=== PATIENT | female | born 1960 | race Caucasian/White ===

== ENCOUNTER 2020-06-13 10:48 | Outpatient (CLI) | payer MEDICARE, MEDICAID, SELFPAY ==
--- NOTE | 2020-06-13 10:55 | MM_ITS ---
WS: [id number] BILATERAL DIGITAL SCREENING MAMMOGRAPHY WITH CAD CLINICAL INFORMATION: SCREENING HISTORY: Screening mammogram. No current complaints. COMPARISON: TECHNIQUE: Bilateral CC and MLO views. FINDINGS: Scattered fibroglandular densities bilaterally. No suspicious focal mass, asymmetry, calcifications, or architectural distortion. No evidence of malignancy. MM/[id number] IMPRESSION: BI-RADS: 1-Negative FOLLOW UP: 1 Year Follow-up Recommend return to annual screening mammography.
== END 2020-06-13 10:49 | disposition home or self-care (01) ==
LOC: RADSHAW 10:53
PROVIDERS: PCP Nurse Practitioner Family; Visit Provider Nurse Practitioner Family
DX: Z12.31 Encounter for screening mammogram for malignant neoplasm of breast (principal)
CPT/HCPCS: 77067

== ENCOUNTER 2021-01-08 09:49 | Outpatient (CLI) | payer MEDICARE, MEDICAID, SELFPAY ==
--- NOTE | 2021-01-08 10:04 | CT_ITS ---
WS: [id number] LDCT LUNG CANCER SCREENING TECHNIQUE: Noncontrast CT of the chest with coronal and sagittal reformatted images. CLINICAL INFORMATION: HX OF TOBACCO USE COMPARISON: CT 6 13,018 DLP: 52.6 mGy.cm DIvol: 1.[address] scans at [facility] use at least one of these dose optimization techniques: automat ed exposure control; mA and/or kV adjustment per patient size (includes targeted exams where dose is matched to clinical indication); or iterative reconstruction. FINDINGS: Both lungs are well aerated. Subsegmental atelectasis in the lung bases foraminal lobe. No suspicious pulmonary parenchymal opacities. Images limited due to body habitus. No mediastinal or hilar lymphad enopathy. Small esophageal hiatal hernia. CT/CT lung screening [id number] IMPRESSION: LUNG-RADS: 2-Benign Appearance or Behavior FOLLOW UP: 12 Month: Continue annual screening with LDCT
== END 2021-01-08 09:50 | disposition home or self-care (01) ==
LOC: RAD 09:55
PROVIDERS: PCP Nurse Practitioner Family; Visit Provider Family Medicine
DX: Z12.2 Encounter for screening for malignant neoplasm of respiratory organs (principal); Z87.891 Personal history of nicotine dependence
CPT/HCPCS: 71271

== ENCOUNTER 2021-01-24 08:54 | Outpatient (CLI) | payer MEDICARE, MEDICAID, SELFPAY ==
--- NOTE | 2021-01-24 09:16 | XR_ITS ---
WS: [id number] KUB, AP view, 01/23/2021 Clinical Data: FLANK PAIN Comparison: KUB, 02/02/2019. Findings: No abnormal intraabdominal masses or calcifications are seen. There is no dilatated small bowel or ev idence of obstruction. There is minimal amorphous calcification in the right-sided true pelvis which could represent a degen erating leiomyoma. XR/XR KUB [id number] Impression: Negative KUB.
== END 2021-01-24 08:55 | disposition home or self-care (01) ==
LOC: RAD 09:04
PROVIDERS: PCP Nurse Practitioner Family; Visit Provider Nurse Practitioner Family
DX: R10.9 Unspecified abdominal pain (principal)
CPT/HCPCS: 74018

== ENCOUNTER 2021-04-27 12:30 | Outpatient (CLI) | payer MEDICARE, MEDICAID, SELFPAY ==
--- NOTE | 2021-04-27 12:39 | XR_ITS ---
WS: [id number] Sacroiliac joints, 3 views, 04/27/2021 Clinical Data: BACK PAIN Comparison: None. Findings: The SI joints are normal in width. No erosion, sclerosis or destruction is seen. There are no fractur es or dislocations. The adjacent visualized pelvis and hips are unremarkable. XR/XR sacroiliac jts m 3V [id number] Impression: Negative SI joints.
== END 2021-04-27 12:31 | disposition home or self-care (01) ==
LOC: RAD 12:36
PROVIDERS: PCP Nurse Practitioner Family; Visit Provider Nurse Practitioner Family
DX: M54.5 Low back pain (principal)
CPT/HCPCS: 72202

== ENCOUNTER 2021-05-17 10:41 | Outpatient (CLI) | payer MEDICARE, MEDICAID, SELFPAY ==
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
== END 2021-05-17 10:42 | disposition home or self-care (01) ==
PROVIDERS: PCP Nurse Practitioner Family; Visit Provider Nurse Practitioner Family
DX: M54.40 Lumbago with sciatica, unspecified side (principal); M51.37 Other intervertebral disc degeneration, lumbosacral region; M47.816 Spondylosis without myelopathy or radiculopathy, lumbar region
CPT/HCPCS: 72100

== ENCOUNTER 2021-06-12 14:19 | Outpatient (CLI) | payer MEDICARE, MEDICAID, SELFPAY ==
--- NOTE | 2021-06-12 14:26 | CT_ITS ---
WS: [id number] CT LUMBAR SPINE, noncontrast. HISTORY: VERTEBROGENIC LOW BACK PAIN TECHNIQUE: Contiguous 2.5 mm axial imaging are performed. Sagittal and coronal reformats are submitte d and reviewed. All CT scans at [facility] use at least one of these dose optimization techni ques: automated exposure control; mA and/or kV adjustment per patient size (includes targeted exams w here dose is matched to clinical indication); or iterative reconstruction. IV contrast: None DLP: 1852.94 mGycm COMPARISON: 05/17/2021 radiograph. Posterior alignment is normal. Disc spaces and vertebral body heights are well-maintained. No fractur es. Quality the study is compromised by body habitus. L1-2: Normal. L2-3: Normal. L3-4: RIGHT foraminal disc protrusion does not appear to be contacting the nerve roots. L4-5: Mild osteophytic ridging. No stenosis. Mild facet arthritis. L5-S1: Mild facet arthritis. Small osteophytes causing mild bilateral foraminal narrowing. Visualized retroperitoneum is normal. CT/CT lumbar spine wo con* [id number] IMPRESSION: 1. No high-grade central stenosis or fracture. 2. Small RIGHT foraminal disc protrusion at L3-4 without contact on the nerve roots. 3. Mild bilateral foraminal narrowing at L5-S1 predominantly due to osteophyte s.
== END 2021-06-12 14:20 | disposition home or self-care (01) ==
PROVIDERS: PCP Nurse Practitioner Family; Visit Provider Nurse Practitioner
DX: M51.26 Other intervertebral disc displacement, lumbar region (principal); M25.78 Osteophyte, vertebrae
CPT/HCPCS: 72131

== ENCOUNTER 2021-06-13 15:15 | Outpatient (CLI) | payer MEDICARE, MEDICAID, SELFPAY ==
--- NOTE | 2021-06-13 15:22 | MM_ITS ---
WS: [id number] BILATERAL DIGITAL SCREENING MAMMOGRAPHY WITH CAD CLINICAL INFORMATION: SCREENING HISTORY: Screening mammogram. No current complaints. COMPARISON: June 13, 2020 TECHNIQUE: Bilateral CC and MLO views. FINDINGS: Scattered fibroglandular densities bilaterally. No suspicious focal mass, asymmetry, calcifications, or architectural distortion. No evidence of malignancy. MM/[place] [id number] IMPRESSION: BI-RADS: 1-Negative FOLLOW UP: 1 Year Follow-up Recommend return to annual screening mammography.
== END 2021-06-13 15:16 | disposition home or self-care (01) ==
LOC: RADSHAW 15:20
PROVIDERS: PCP Nurse Practitioner Family; Visit Provider Nurse Practitioner Family
DX: Z12.31 Encounter for screening mammogram for malignant neoplasm of breast (principal)
CPT/HCPCS: 77067

== ENCOUNTER 2021-07-30 09:33 | Emergency (ER) | payer SELFPAY ==
[2021-07-30 10:21] VITALS: BP 181/91; PULSE 97; RESP 15; TEMP 36.7; O2SAT 98; BMI 53.0
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
[2021-07-30 11:03] VITALS: BP 126/67; PULSE 70; RESP 16; O2SAT 98
[2021-07-30 11:20] LABS: Basophils # 0.2 10^3/uL (0.0-0.1); Basophils % 1.6 %; Eosinophils # 1.3 10^3/uL (0.0-0.8); Eosinophils % 14.1 %; Hemoglobin 14.4 g/dL (11.5-15.3); Lymphocytes # 1.9 10^3/uL (0.8-4.8); Lymphocytes % 20.9 %; Mean Corpuscular HGB Conc 31.3 g/dL (30.0-36.0); Mean Corpuscular Hemoglobin 27.5 pg (28.0-34.0); Mean Corpuscular Volume 87.8 fl (81-99); Mean Platelet Volume 9.3 fL (7.4-10.4); Monocytes # 0.6 10^3/uL (0.2-0.9); Monocytes % 6.3 %; Neutrophils % 56.8 %; Nucleated Red Blood Cells % 0 %; Platelet Count 615 10^3/cmm (130-400); Red Blood Count 5.24 10^6/uL (4.1-5.3); Red Cell Distribution Width 13.5 % (12.1-15.1); White Blood Count 9.2 10^3/uL (4.0-10.0)
[2021-07-30] MEDS: iohexol 300 mg/mL 100 mL Btl IV (11:36)
[2021-07-30 11:43] LABS: Alanine Aminotransferase 17 U/L (0-33); Albumin Level 4.3 g/dL (3.5-5.2); Alkaline Phosphatase 93 IU/L (35-105); Anion Gap 16.7 (5-19); Aspartate Amino Transferase 13 U/L (0-32); Blood Urea Nitrogen 20 mg/dL (6-20); Calcium 10.4 mg/dL (8.5-10.5); Carbon Dioxide 19 mmol/L (22-29); Chloride 110 mmol/L (98-107); Globulin 2.5 g/dL (1.3-4.6); Glomerular Filtration Rate 85.9 mL/min (90-130); Glucose 94 mg/dL (65-115); Osmolality Calculated 294 mOsm/kg (285-295); Potassium 4.7 mmol/L (3.5-5.1); Sodium 141 mmol/L (136-145); Total Bilirubin 0.4 mg/dL (0.15-1.2); Total Protein 6.8 g/dL (6.6-8.7)
[2021-07-30 13:03] VITALS: BP 122/88
[2021-07-30 13:11] VITALS: BP 122/88; PULSE 88; RESP 15; O2SAT 98
== END 2021-07-30 13:11 | disposition home or self-care (01) ==
PROVIDERS: Emergency Provider Physician Assistant; PCP Nurse Practitioner Family
DX: S20.20XA Contusion of thorax, unspecified, initial encounter (principal); V89.2XXA Person injured in unspecified motor-vehicle accident, traffic, initial encounter
CPT/HCPCS: 71260; 74177; 80053; 85025; 99283; Q9967

== ENCOUNTER → 2021-10-28 11:01 | Outpatient (BNVA) | payer MEDICARE, MEDICAID, SELFPAY | PROVIDERS: PCP Nurse Practitioner Family; Visit Provider Nurse Practitioner | DX: R50.9 Fever, unspecified (principal); J10.1 Influenza due to other identified influenza virus with other respiratory manifestations | CPT/HCPCS: 87400 ==

== ENCOUNTER 2022-05-08 13:20 | Outpatient (CLI) | payer MEDICARE, MEDICAID, SELFPAY ==
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
== END 2022-05-08 13:21 | disposition home or self-care (01) ==
PROVIDERS: PCP Nurse Practitioner Family; Visit Provider Nurse Practitioner Family
DX: R07.89 Other chest pain (principal)
CPT/HCPCS: 71046

== ENCOUNTER 2022-05-28 06:41 | Outpatient (CLI) | payer MEDICARE, MEDICAID, SELFPAY ==
--- NOTE | 2022-05-28 06:46 | CT_ITS ---
WS: [id number] LDCT LUNG CANCER SCREENING HISTORY: STOPPED SMOKING TECHNIQUE: Axial imaging performed from the apices to 1 cm below the costophrenic angles. Coronal and sagittal reformats are submitted with axial MIP series. All CT scans at [facility] use at least one of these dose optimization techniques: automated exposure control; mA and/or kV adjustment per patient size (includes targeted exams where dose is matched to clinical indication); or iterativ e reconstruction. DLP: 84.39 mGy.cm DIvol: Mean CTDIvol: 1.60 (mGy),Mean CTDIvol: 1.60 (mGy) COMPARISON: 07/30/2021 Diagnostic quality: Limited by body habitus. Lung Nodules: No pulmonary nodule or mass or endobronchial lesion. Lungs: Subsegmental atelectasis LEFT lung base. Heart: Normal size heart. No pericardial effusion. Other findings: None. CT/CT lung screening [id number] IMPRESSION: LUNG-RADS: 1-Negative FOLLOW UP: 12 Month: Continue annual screening with LDCT OTHER FINDINGS (S MODIFIER): None.
== END 2022-05-28 06:42 | disposition home or self-care (01) ==
LOC: RAD 06:42
PROVIDERS: PCP Nurse Practitioner Family; Visit Provider Nurse Practitioner Family
DX: Z12.2 Encounter for screening for malignant neoplasm of respiratory organs (principal); Z87.891 Personal history of nicotine dependence
CPT/HCPCS: 71271

== ENCOUNTER → 2022-08-08 09:51 | Outpatient (BNVA) | payer MEDICARE, MEDICAID, SELFPAY | PROVIDERS: PCP Nurse Practitioner Family; Visit Provider Podiatrist Foot & Ankle Surgery | DX: W50.0XXA Accidental hit or strike by another person, initial encounter (principal); L60.3 Nail dystrophy; S91.201A Unspecified open wound of right great toe with damage to nail, initial encounter | CPT/HCPCS: 99203 ==

== ENCOUNTER 2022-10-12 11:35 | Outpatient (CLI) | payer MEDICARE, MEDICAID, SELFPAY ==
--- NOTE | 2022-10-12 11:58 | XRR_ITS ---
PROCEDURE INFORMATION: Exam: XR Right Knee Exam date and time: 10/12/2022 12:02 PM Age: 61 years old Clinical indication: Pain; Knee; Right; Additional info: RT knee pain TECHNIQUE: Imaging protocol: Radiologic exam of the Right knee. Views: 3 views. COMPARISON: No relevant prior studies available. FINDINGS: Bones/joints: No fracture or dislocation. There is moderate degenerative changes of the right knee, manifested by joint space narrowing, subchondral sclerosis and periarticular osteophytes, involving mainly the medial compartment. Small joint effusion noted. Soft tissues: Normal. XR/XR knee RT 4V [id number] IMPRESSION: 1. No fracture or dislocation. 2. Moderate osteoarthrosis.
== END 2022-10-12 11:36 | disposition home or self-care (01) ==
PROVIDERS: PCP Nurse Practitioner Family; Visit Provider Nurse Practitioner Family
DX: R26.9 Unspecified abnormalities of gait and mobility (principal); M17.11 Unilateral primary osteoarthritis, right knee
CPT/HCPCS: 73564

== ENCOUNTER → 2022-10-17 13:34 | Outpatient (BNVA) | payer MEDICARE, MEDICAID, SELFPAY | PROVIDERS: PCP Nurse Practitioner Family; Referring Provider Nurse Practitioner Family; Visit Provider Nurse Practitioner Family | DX: M17.11 Unilateral primary osteoarthritis, right knee (principal) | CPT/HCPCS: 20610; 99214; J1100; J2795; J3301 ==

== ENCOUNTER 2022-12-15 21:18 | Emergency (ER) | payer MEDICARE, MEDICAID, SELFPAY ==
[2022-12-15 21:21] VITALS: BP 114/71; PULSE 85; RESP 18; TEMP 36.3; O2SAT 97; BMI 45.6
--- NOTE | 2022-12-15 21:27 | ECG_ITS ---
[facility] Test Date: 2022-12-15 Pat Name: Shelbi Jerez Department: Room: Gender: Female Parking Patroller: : 1960 Requested By: Annemarie Randall Order Number: [id number] Brenda MD: Edison Cassidy M.D. Measurements Intervals [place] Rate: 81 P: 147 OH: 177 QRS: 49 QRSD: 90 T: 21 QT: 328 QTc: 383 Interpretive Statements SINUS RHYTHM POSSIBLE LEFT ATRIAL ENLARGEMENT [-0.1mV P-WAVE IN V1/V2] No previous ECG available for comparison Electronically Signed On 12-16-2022 14:27:45 CDT by Edison Cassidy M.D. [email or web address]
== END 2022-12-15 21:49 | disposition left against medical advice (07) ==
LOC: ER 21:26
PROVIDERS: Emergency Provider Family Medicine; PCP Nurse Practitioner Family
DX: Z53.21 Procedure and treatment not carried out due to patient leaving prior to being seen by health care provider (principal)
CPT/HCPCS: 93005

== ENCOUNTER → 2023-02-14 07:56 | Outpatient (BNVA) | payer MEDICARE, MEDICAID, SELFPAY | PROVIDERS: PCP Nurse Practitioner Family; Visit Provider Nurse Practitioner Family | DX: M17.11 Unilateral primary osteoarthritis, right knee (principal) | CPT/HCPCS: 20610; 99213; J1100; J2795; J3301 ==

== ENCOUNTER → 2023-05-31 11:04 | Outpatient (BNVA) | payer MEDICARE, MEDICAID, SELFPAY | PROVIDERS: PCP Nurse Practitioner Family; Visit Provider Emergency Medicine | DX: J02.9 Acute pharyngitis, unspecified (principal) | CPT/HCPCS: 87071; 87880 ==

== ENCOUNTER → 2023-06-05 08:46 | Outpatient (BNVA) | payer MEDICARE, MEDICAID, SELFPAY | PROVIDERS: PCP Nurse Practitioner Family; Visit Provider Podiatrist Foot & Ankle Surgery | DX: L60.3 Nail dystrophy (principal) | CPT/HCPCS: 99213 ==

== ENCOUNTER → 2023-07-23 07:16 | Outpatient (BNVA) | payer MEDICARE, MEDICAID, SELFPAY | PROVIDERS: PCP Nurse Practitioner Family; Visit Provider Podiatrist Foot & Ankle Surgery | DX: L60.3 Nail dystrophy (principal); E11.42 Type 2 diabetes mellitus with diabetic polyneuropathy; Z79.4 Long term (current) use of insulin | CPT/HCPCS: 99213 ==

== ENCOUNTER → 2024-04-14 08:12 | Outpatient (BNVA) | payer MEDICARE, MEDICAID, SELFPAY | PROVIDERS: PCP Nurse Practitioner Family; Visit Provider Nurse Practitioner Family | DX: R09.81 Nasal congestion (principal) | CPT/HCPCS: 87400; 87426 ==

== ENCOUNTER → 2024-04-19 10:15 | Outpatient (BNVA) | payer MEDICARE, MEDICAID, SELFPAY | PROVIDERS: PCP Nurse Practitioner Family; Referring Provider Nurse Practitioner Family; Visit Provider Internal Medicine | DX: R53.83 Other fatigue (principal); E21.0 Primary hyperparathyroidism; E55.9 Vitamin D deficiency, unspecified; G47.33 Obstructive sleep apnea (adult) (pediatric); Z87.442 Personal history of urinary calculi | CPT/HCPCS: 36415; 80053; 82306; 82310; 83970; 84439; 84443; 99204 ==

== ENCOUNTER 2024-06-17 07:48 | Outpatient (CLI) | payer MEDICARE, MEDICAID, SELFPAY ==
--- NOTE | 2024-06-17 08:00 | NM_ITS ---
WS: [id number] EXAMINATION: NM parathyroid [id number] ORDER DATE: 06/17/2024 8:23 AM COMPARISON: None HISTORY: hyperparathyroidism TECHNIQUE: Parathyroid scintigraphy with 18.0 mCi of technetium 99m sestamibi administered. AP and ob lique views obtained with and without chin and suprasternal notch markers. Initial and 2 hour delaye d imaging acquired. FINDINGS: Normal salivary gland uptake. Homogeneous thyroid uptake. Normal thyroid washout on the delayed image s. No retained activity to indicate parathyroid adenoma. NM/NM parathyroid [id number] IMPRESSION: No evidence of parathyroid adenoma.
== END 2024-06-17 07:49 | disposition home or self-care (01) ==
PROVIDERS: PCP Nurse Practitioner Family; Visit Provider Internal Medicine
DX: E21.0 Primary hyperparathyroidism (principal)
CPT/HCPCS: 78070; A9500

== ENCOUNTER → 2024-07-20 08:15 | Outpatient (BNVA) | payer MEDICARE, MEDICAID, SELFPAY | PROVIDERS: PCP Nurse Practitioner Family; Visit Provider Podiatrist Foot & Ankle Surgery | DX: E11.42 Type 2 diabetes mellitus with diabetic polyneuropathy; L60.3 Nail dystrophy; L84 Corns and callosities; Q66.71 Congenital pes cavus, right foot; Q66.72 Congenital pes cavus, left foot; Z79.4 Long term (current) use of insulin | CPT/HCPCS: 99213 ==

== ENCOUNTER 2024-11-02 10:33 | Outpatient (CLI) | payer MEDICARE, MEDICAID, SELFPAY ==
--- NOTE | 2024-11-02 10:39 | MR_ITS ---
WS: [id number] MRI LUMBAR SPINE NONCONTRAST HISTORY: INTERVERTEBRAL DISC DISORDERS W/RADICULOPATH, LUMBAR REGION COMPARISON: None available. TECHNIQUE: Sagittal and axial multisequence imaging is submitted. Reversal the normal cervical lordosis centered at C6-7. Mild disc space narrowing and desiccation at C6-7 with a central disc protrusion. Minimal contact on the ventral cervical cord. Normal lumbar alignment with no compression fractures or marrow edema. Mild disc desiccation throughout the lumbar spine without loss of height. No acute fracture or marrow edema. Conus terminates normally at L1. L1-L2: Normal. L2-L3: Mild annular disc bulging with shallow bilateral foraminal disc protrusions. Ligamentum flavum and facet arthritis, mild. Disc encroachment upon the ventral thecal sac and subarticular recesses. Mild central, subarticular recess and foraminal stenosis. Slightly greater encroachment upon the traversing L3 nerve roots. L3-L4: Diffuse annular disc bulging with marked ligamentum flavum and facet arthritis. Increased soft tissue in the RIGHT foramen completely effacing fat. Fluid in the facet joints bilaterally. Severe central, subarticular recess and RIGHT foraminal stenosis. Mild LEFT foraminal stenosis. Moderate size RIGHT foraminal disc protrusion effacing fat and contacting the RIGHT nerve roots. There is a small facet joint cyst measuring 7 mm on the RIGHT. L4-L5: Mild annular disc bulge with a central disc protrusion and annular fissure. Disc contacts the ventral thecal sac and subarticular recesses and traversing L5 nerve roots. Additional very small bilateral foraminal disc protrusions. Mild central and bilateral subarticular recess stenosis. L5-S1: Mild annular disc bulging and mild osteophytic ridging. Bilateral mild facet arthritis. No significant stenosis. Paravertebral soft tissues are normal. MR/MR lumbar spine wo con* [id number] IMPRESSION: 1. L3-4: RIGHT foraminal disc protrusion completely effacing fat and contactin g the L3 and L4 nerve roots. 2. L3-4: Severe central, subarticular recess and RIGHT foraminal stenosis due to disc and osteophyte and facet arthropathy. Small RIGHT facet joint cyst. 3. L4-5: Central disc protrusion with annular fissure. Additional small bilate ral foraminal disc protrusions. Mild central and bilateral subarticular recess stenosis. Mild disc contact on the traversing L5 nerve roots. 4. L2-3: Mild central, subarticular recess and foraminal stenosis. Mild disc e ncroachment upon the ventral thecal sac and subarticular recesses. Greater encr oachment upon the traversing L3 nerve roots.
== END 2024-11-02 10:34 | disposition home or self-care (01) ==
PROVIDERS: PCP Nurse Practitioner Family; Visit Provider Anesthesiology Pain Medicine
DX: M51.16 Intervertebral disc disorders with radiculopathy, lumbar region (principal); M51.26 Other intervertebral disc displacement, lumbar region; R93.7 Abnormal findings on diagnostic imaging of other parts of musculoskeletal system; M48.061 Spinal stenosis, lumbar region without neurogenic claudication; M25.78 Osteophyte, vertebrae; M47.896 Other spondylosis, lumbar region; M71.38 Other bursal cyst, other site; M51.369 Other intervertebral disc degeneration, lumbar region without mention of lumbar back pain or lower extremity pain; M24.28 Disorder of ligament, vertebrae; M51.379 Other intervertebral disc degeneration, lumbosacral region without mention of lumbar back pain or lower extremity pain; M47.897 Other spondylosis, lumbosacral region
CPT/HCPCS: 72148

== ENCOUNTER → 2024-11-30 14:22 | Outpatient (BNVA) | payer MEDICARE, MEDICAID, SELFPAY | PROVIDERS: PCP Nurse Practitioner Family; Visit Provider Podiatrist Foot & Ankle Surgery | DX: E11.42 Type 2 diabetes mellitus with diabetic polyneuropathy (principal); L84 Corns and callosities; Q66.71 Congenital pes cavus, right foot; Q66.72 Congenital pes cavus, left foot | CPT/HCPCS: 99213 ==

== ENCOUNTER 2025-01-20 10:25 | Outpatient (CLI) | payer OTHER, MEDICAID, SELFPAY ==
--- NOTE | 2025-01-20 10:30 | XR_ITS ---
WS: [id number] KUB, AP view, 01/20/2025 Clinical Data: FLANK PAIN, LEFT, HEMATURIA Comparison: KUB, 01/24/2021 Findings: No abnormal intraabdominal masses are seen. There is no dilatated small bowel or evidence of obstruction. There are calcifications overlying both kidneys but they could be within the colon. There is a large amount of fecal material in the transverse colon. XR/XR KUB [id number] Impression: Calcifications overlying both kidneys but they may be in the colon.
== END 2025-01-20 10:26 | disposition home or self-care (01) ==
LOC: RAD 10:29
PROVIDERS: PCP Nurse Practitioner Family; Visit Provider Nurse Practitioner Family
DX: R10.9 Unspecified abdominal pain (principal); R31.9 Hematuria, unspecified; R93.89 Abnormal findings on diagnostic imaging of other specified body structures
CPT/HCPCS: 74018

== ENCOUNTER 2025-02-09 11:31 | Outpatient (CLI) | payer OTHER, MEDICAID, SELFPAY ==
--- NOTE | 2025-02-09 | MM_ITS ---
WS: [id number] BILATERAL 3D TOMOSYNTHESIS DIGITAL SCREENING MAMMOGRAPHY WITH CAD CLINICAL INFORMATION: ANNUAL SCREENING HISTORY: Screening mammogram. No current complaints. COMPARISON: None. TECHNIQUE: Bilateral CC and MLO views. FINDINGS: Scattered fibroglandular densities bilaterally. No suspicious focal mass, asymmetry, calcifications, or architectural distortion. No evidence of malignancy. MM/MM scr BI tomosynthesis [id number] IMPRESSION: DENSITY: There are scattered areas of fibroglandular density. BI-RADS: 1 - Negative. FOLLOW UP: 1 Year Follow-up Recommend return to annual screening mammography.
== END 2025-02-09 11:32 | disposition home or self-care (01) ==
PROVIDERS: PCP Nurse Practitioner Family; Visit Provider Nurse Practitioner Family
DX: Z12.31 Encounter for screening mammogram for malignant neoplasm of breast (principal)
CPT/HCPCS: 77063; 77067

== ENCOUNTER → 2025-06-08 13:45 | Outpatient (BNVA) | payer OTHER, MEDICAID, SELFPAY | PROVIDERS: PCP Nurse Practitioner Family | DX: R39.9 Unspecified symptoms and signs involving the genitourinary system (principal) | CPT/HCPCS: 81000 ==

== ENCOUNTER 2025-06-13 06:41 | Emergency (ER) | payer OTHER, MEDICAID, SELFPAY ==
--- OUTSIDE RECORDS SUMMARY | 2025-06-13 06:45 | XMS_ITS | Encounter Summary ---
Author Organization [facility] Address [address] [place] [address] Care Team Providers Care Meat Molder Name Role Phone Unavailable Primary Care Provider Unavailabl e Encounter Details Date Type Department Care Team (Latest Contact Info) Description 12/09/2000 Outpatient Historical HIS [facility] Eduard Alston MD [address] [place] [address] Type I (juvenile type) diabetes mellitus without mention of complication, not stated as uncontrolled (Primary Dx); Periapical abscess; Dental caries; Allergic rhinitis, cause unspecified Social History Tobacco Use Types Packs/Day Years Used Date Smoking Tobacco: Never Assessed Comments Unknown Sex and Gender Information Value Date Recorded Sex Assigned at Not on file 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
--- OUTSIDE RECORDS SUMMARY | 2025-06-13 06:45 | XMS_ITS | Encounter Summary ---
Author Organization [facility] Address [address] [place] [address] Care Team Providers Care Die Press Operator Name Role Phone Unavailable Primary Care Provider Unavailabl e Encounter Details Date Type Department Care Team (Latest Contact Info) Description 04/14/2000 Outpatient Historical HIS [facility] Eduard Alston MD [address] [place] [phone] Other, multiple, and unspecified sites, insect bite, nonvenomous, infected(919.5) (Primary Dx) Social History Tobacco Use Types Packs/Day Years Used Date Smoking Tobacco: Never Assessed Comments Unknown Sex and Gender Information Value Date Recorded Sex Assigned at Not on file Legal Sex Female 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
--- OUTSIDE RECORDS SUMMARY | 2025-06-13 06:45 | XMS_ITS | Encounter Summary ---
Author Organization [facility] Address [address] [place] [address] Care Team Providers Care Tafe Registrar Name Role Phone Unavailable Primary Care Provider Unavailabl e Encounter Details Date Type Department Care Team (Latest Contact Info) Description 03/04/2001 Outpatient Historical HIS [facility] Jigar Alatorre NO ADDRESS ON FILE Cellulitis and abscess of unspecified digit (Primary Dx) Social History Tobacco Use Types Packs/Day Years Used Date Smoking Tobacco: Never Assessed Comments Unknown Sex and Gender Information Value Date Recorded Sex Assigned at Not on file Legal Sex Female 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
--- OUTSIDE RECORDS SUMMARY | 2025-06-13 06:45 | XMS_ITS | Encounter Summary ---
Author Organization [facility] Address [address] [place] [address] Care Team Providers Care Siding Installer Name Role Phone Unavailable Primary Care Provider Unavailabl e Encounter Details Date Type Department Care Team (Latest Contact Info) Description 03/27/2001 Outpatient Historical HIS [facility] Eduard Alston MD [address] [place] [phone] Anxiety state, unspecified (Primary Dx); Depressive disorder, not elsewhere classified Social History Tobacco Use Types Packs/Day Years Used Date Smoking Tobacco: Never Assessed Comments Unknown Sex and Gender Information Value Date Recorded Sex Assigned at Not on file 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
--- OUTSIDE RECORDS SUMMARY | 2025-06-13 06:45 | XMS_ITS | Encounter Summary ---
Author Organization [facility] Address [address] [place] [address] Care Team Providers Care Lead Web Developer Name Role Phone Unavailable Primary Care Provider Unavailabl e Encounter Details Date Type Department Care Team (Latest Contact Info) Description 04/13/2001 Outpatient Historical HIS [facility] Eduard Alston MD [address] [place] [phone] Dermatitis due to plant (Primary Dx); Sialoadenitis Social History Tobacco Use Types Packs/Day Years Used Date Smoking Tobacco: Never Assessed Comments Unknown Sex and Gender Information Value Date Recorded Sex Assigned at Not on file 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
--- OUTSIDE RECORDS SUMMARY | 2025-06-13 06:45 | XMS_ITS | Encounter Summary ---
Author Organization [facility] Address [address] [place] [address] Care Team Providers Care Flitch Hanger Name Role Phone Unavailable Primary Care Provider Unavailabl e Encounter Details Date Type Department Care Team (Latest Contact Info) Description 10/28/2000 Outpatient Historical HIS [facility] Jigar Alatorre NO ADDRESS ON FILE Other malaise and fatigue (Primary Dx); Type I (juvenile type) diabetes mellitus without mention of complication, not stated as uncontrolled Social History Tobacco Use Types Packs/Day Years Used Date Smoking Tobacco: Never Assessed Comments Unknown Sex and Gender Information Value Date Recorded Sex Assigned at Not on file 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
--- OUTSIDE RECORDS SUMMARY | 2025-06-13 06:45 | XMS_ITS | Encounter Summary ---
Author Organization [facility] Address [address] [place] [address] Care Team Providers Care Rack Pusher Name Role Phone Unavailable Primary Care Provider Unavailabl e Encounter Details Date Type Department Care Team (Latest Contact Info) Description 03/09/2001 Outpatient Historical HIS [facility] Eduard Alston MD [address] [place] [phone] Depressive disorder, not elsewhere classified (Primary Dx) Social History Tobacco Use Types Packs/Day Years Used Date Smoking Tobacco: Never Assessed Comments Unknown Sex and Gender Information Value Date Recorded Sex Assigned at Not on file Legal Sex Female 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
--- OUTSIDE RECORDS SUMMARY | 2025-06-13 06:45 | XMS_ITS | Encounter Summary ---
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
--- OUTSIDE RECORDS SUMMARY | 2025-06-13 06:46 | XMS_ITS | Encounter Summary ---
Author Organization [facility] Address [address] [place] [address] Care Team Providers Care Director Physical Therapy Name Role Phone Unavailable Primary Care Provider Unavailabl e Encounter Details Date Type Department Care Team (Latest Contact Info) Description 07/02/2001 Outpatient Historical HIS [facility] Eduard Alston MD [address] [place] [phone] ABDOMINAL PAIN RLQ (Primary Dx) Social History Tobacco Use Types Packs/Day Years Used Date Smoking Tobacco: Never Assessed Comments Unknown Sex and Gender Information Value Date Recorded Sex Assigned at Not on file Legal Sex Female 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
--- OUTSIDE RECORDS SUMMARY | 2025-06-13 06:46 | XMS_ITS | Encounter Summary ---
Author Organization [facility] Address [address] [place] [address] Care Team Providers Care Sweetbread Trimmer Name Role Phone Unavailable Primary Care Provider Unavailabl e Encounter Details Date Type Department Care Team (Latest Contact Info) Description 05/17/1999 Outpatient Historical HIS [facility] Eduard Alston MD [address] [place] [phone] Screening examination for pulmonary tuberculosis (Primary Dx) Social History Tobacco Use Types Packs/Day Years Used Date Smoking Tobacco: Never Assessed Comments Unknown Sex and Gender Information Value Date Recorded Sex Assigned at Not on file Legal Sex 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
--- OUTSIDE RECORDS SUMMARY | 2025-06-13 06:46 | XMS_ITS | Encounter Summary ---
Author Organization [facility] Address [address] [place] [address] Care Team Providers Care Audiovisual Technician Name Role Phone Unavailable Primary Care Provider Unavailabl e Encounter Details Date Type Department Care Team (Latest Contact Info) Description 08/14/1999 Outpatient Historical HIS [facility] Jigar Alatorre NO ADDRESS ON FILE Influenza with other respiratory manifestations (Primary Dx); Type II or unspecified type diabetes mellitus without mention of complication, not stated as uncontrolled Social History Tobacco Use Types Packs/Day Years Used Date Smoking Tobacco: Never Assessed Comments Unknown Sex and Gender Information Value Date Recorded Sex Assigned at Not on file Legal Sex Female 4:07 AM ADMITTING REPRESENTATIVE Gender Identity Not on file Sexual Orientation Not on file documented as of this encounter Plan of Treatment Not on file documented as of this encounter Visit Diagnoses Diagnosis Influenza with other respiratory manifestations- Primary Type II or unspecified type diabetes mellitus without mention of complication, not stated as uncontrolled documented in this encounter
--- OUTSIDE RECORDS SUMMARY | 2025-06-13 06:46 | XMS_ITS | Clinical Summary ---
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
--- OUTSIDE RECORDS SUMMARY | 2025-06-13 06:46 | XMS_ITS | Encounter Summary ---
Author Organization [facility] Address [address] [place] [address] Care Team Providers Care Writing Manager Name Role Phone Unavailable Primary Care Provider Unavailabl e Encounter Details Date Type Department Care Team (Latest Contact Info) Description 05/15/1999 Outpatient Historical HIS [facility] Eduard Alston MD [address] [place] [phone] Type II or unspecified type diabetes mellitus without mention of complication, not stated as uncontrolled (Primary Dx); Unspecified viral infection, in conditions classified elsewhere and of unspecified site Social History Tobacco Use Types Packs/Day Years Used Date Smoking Tobacco: Never Assessed Comments Unknown Sex and Gender Information Value Date Recorded Sex Assigned at Not on file Legal Sex Female 4:07 AM MANAGER OF INTERNAL Gender Identity Not on file Sexual Orientation Not on file documented as of this encounter Plan of Treatment Not on file documented as of this encounter Visit Diagnoses Diagnosis Type II or unspecified type diabetes mellitus without mention of complication, not stated as uncontrolled- Primary Unspecified viral infection, in conditions classified elsewhere and of unspecified site documented in this encounter
--- OUTSIDE RECORDS SUMMARY | 2025-06-13 06:46 | XMS_ITS | Encounter Summary ---
Author Organization [facility] Address [address] [place] [address] Care Team Providers Care Budget Assistant Name Role Phone Unavailable Primary Care Provider Unavailabl e Encounter Details Date Type Department Care Team (Latest Contact Info) Description 06/22/2002 Outpatient Historical HIS [facility] Eduard Alston MD [address] [place] [phone] ALLERGIC RHINITIS NOS (Primary Dx); UNS ASTHMA WOSTATUS ASTHMATICUS; DIABETES UNCOMPL KADE-TYPE I ([facility]) Social History Tobacco Use Types Packs/Day Years Used Date Smoking Tobacco: Never Assessed Comments Unknown Sex and Gender Information Value Date Recorded Sex Assigned at Not on file Legal Sex Female 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
--- OUTSIDE RECORDS SUMMARY | 2025-06-13 06:46 | XMS_ITS | Encounter Summary ---
Author Organization [facility] Address [address] [place] [address] Care Team Providers Care Call Center Manager Name Role Phone Unavailable Primary Care Provider Unavailabl e Encounter Details Date Type Department Care Team (Latest Contact Info) Description 10/19/1999 Outpatient Historical HIS [facility] Eduard Alston MD [address] [place] [phone] Pain in joint, ankle and foot (Primary Dx); Unspecified closed fracture of ankle; Type I (juvenile type) diabetes mellitus without mention of complication, not stated as uncontrolled Social History Tobacco Use Types Packs/Day Years Used Date Smoking Tobacco: Never Assessed Comments Unknown Sex and Gender Information Value Date Recorded Sex Assigned at Not on file Legal 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
--- OUTSIDE RECORDS SUMMARY | 2025-06-13 06:46 | XMS_ITS | Encounter Summary ---
Author Organization [facility] Address [address] [place] [address] Care Team Providers Care Child Life Assistant Name Role Phone Unavailable Primary Care Provider Unavailabl e Encounter Details Date Type Department Care Team (Latest Contact Info) Description 07/18/1998 Outpatient Historical HIS [facility] Eduard Alston MD [address] [place] [phone] Type I (juvenile type) diabetes mellitus without mention of complication, not stated as uncontrolled (Primary Dx); Depressive disorder, not elsewhere classified; Obesity, unspecified Social History Tobacco Use Types Packs/Day Years Used Date Smoking Tobacco: Never Assessed Comments Unknown Sex and Gender Information Value Date Recorded Sex Assigned at Not on file Legal Sex Female 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
--- OUTSIDE RECORDS SUMMARY | 2025-06-13 06:46 | XMS_ITS | Data Portability ---
Author Organization [facility], Dat, [facility] Address [address] [place] [address] Care Team Providers Care Net Developer With W[employer] Name Role Phone MONICA TORO Primary Care Provider [phone] Assessment No assessment recorded. Plan of Treatment Reminders Order Date Submit Date Provider Last Modified By Organization Details Last Modified Time Details Appointments None record ed. Lab None record ed. Referral None record ed. Procedures None record ed. Surgeries None record ed. Imaging XR, wrist, 3 or more view 025 01/09/20 [email or web address] [facility], [address] [place], [address], 13:36:56 Medication Orders None record ed. Patient TargetsNo targets recorded. Patient Instructions Encounter Date Encounter Id Patient Instructions Last Modified By Organization Details Last Modified Time 01/08/2025 [id number] May use ice and NSAIDs. Splint applied. Not available 01/08/2025 16:20:30 X-rays reviewed: May have a possible compound fracture of left wrist- will let radiology determine this. Splint applied. If this comes back as this will need to refer to ortho. Not available 01/08/2025 16:19:56 Reason for Referral None Reported. Results Created Date Observation Date Name Description Value Unit Range Abnormal Flag Note LastModifiedBy Organization Detail LastModifiedTime 01/12/2001/08/2025 XR, wrist , 3 or more view No observ ation record ed. [email or web address] [address], [place], [address], 01/11/2025 16:00:48 Result Notes None recorded. Problems Name Problem SNOMED Code Status Onset Date Resolution Date Notes Provider Name and Address Organization Details Recorded Time Asthma 770734510 Active 2019 Asthma; 0 9:20AM by Brittney Ortiz, Office Visit; Promoted; acuity set as *; Not Available [facility] 3 03:13:25 Type 2 diabetes mellitus without complicati on 914758868 Active 2019 Diabetes Mellitus, Type II; 0 9:20AM by Brittney Ortiz, Office Visit; Promoted; acuity set as *; Not Available [facility] 3 03:13:26 Problem Notes None recorded. Medical Equipment None Reported. Allergies Allergen ID Allergen Name Allergen Category Reaction Reaction Severity Criticality Documentation Date Start Date Code Code System Note Provider Name and Address Organization Details Recorded Time 18138 house dust allergeni c extract environme nt,medica tion Not available Not available Not available 03/22/2023 40251 9 RxNorm Comme nt: Recor ded 03/25 9:23A M by Rojas Gates rs, Offic e Visit ; Promo ijeoma; Signi fican ce: *; ; Not Available [facility] 3 02:24:02 28446 animal dander environme nt Not available Not available Not available 03/22/2023 Comme nt: Recor ded 03/25 9:23A M by Rojas Gates rs, Offic e Visit ; Promo ijeoma; Signi fican ce: *; ; Not Available [facility] 3 02:24:02 91334 POLLEN EXTRACTS medicatio n Not available Not available Not available 03/22/2023 64835 6 RxNorm Comme nt: Recor ded 03/25 9:23A M by Rojas Gates rs, Offic e Visit ; Promo ijeoma; Signi fican ce: *; ; Not Available [facility] 3 02:24:02 Medications Name Sig Start Date Stop Date Status Note LastModified by Organization Details LastModified Time Lantus U-100 Insulin 100 unit/mL subcutane ous solution Inject by subcutan eous route. active Not Available Not Available No t Available lisinopri l 10 mg tablet 01/08 completed 0; Recorded 03/25/20 9:21AM by Brittney Ortiz, Office Visit; Not Available Not Available Not Available Topamax 50 mg tablet active 0; Recorded 03/25/20 9:21AM by Brittney Ortiz, Office Visit; Not Available Not Available Not Available hydrocodo ne 10 mg-acetam inophen 300 mg tablet Take 1 tablet every 6 hours by oral route. active Not Available Not Available No t Available Prozac active Not Available Not Availa ble Not Available buspirone active Not Available Not Aiyana ilable Not Available metformin 01/08 completed 0; Recorded 03/25/20 9:20AM by Brittney Ortiz, Office Visit; Not Available Not Available Not Available Novolog Mix 70-30 U-100 Insuln 01/08 completed 0; Recorded 03/25/20 9:22AM by Brittney Ortiz, Office Visit; Not Available Not Available Not Available Farxiga active Not Available Not Avail able Not Available Mounjaro active Not Available Not Avai lable Not Available Vitals Date Recorded Body height Body mass index (BMI) Body weight Heart rate Oxygen saturation Oxygen saturation in Arterial blood by Pulse oximetry Body temperature Systolic And Diastolic Provider Name and Address Organization Details Last Updated DateTime 172.72 cm 32.7 kg/m2 03060.3 6 g 71 /min 99 % 99 % 98.3 [degF] 122/68 mm[Hg] Tammy Anders [facility] 15:46:07 Social History Question Answer Notes LastModified by Organizat ion Details LastModified Time Tobacco Smoking Status Never Smoker Tammy Anders [facility] 01/08/2025 15:41:59 What Was The Date Of Your Most Recent Tobacco Screening? 01/08/2025 [id number] Information not available 01/08/2025 Sex: Unknown Functional Status None recorded. Mental Status None recorded. Family History Nothing Reported. Medical History No medical history recorded. Gynecological HistoryNo gynecological history recorded. Obstetrics History GPAL:G 0 P 0 0 0 0 Immunizations Vaccine Type Date Status Note Provider Nam e and Address Organization Details Recorded Time influenza, split (incl. purified surface antigen) 0 completed Not Available [facility] 01/08/2025 15:37:04 COVID-19, mRNA, LNP-S, PF, 100 mcg/0.5mL dose or 50 mcg/0.25mL dose 1 completed Not Available [facility] 01/08/2025 15:37:04 COVID-19, mRNA, LNP-S, PF, 100 mcg/0.5mL dose or 50 mcg/0.25mL dose 1 completed Not Available [facility] 01/08/2025 15:37:04 Influenza, split virus, quadrivalent, PF 1 completed Not Available [facility] 01/08/2025 15:37:04 Influenza, split virus, quadrivalent, PF 2 completed Not Available [facility] 01/08/2025 15:37:04 zoster recombinant 2 completed Not Available [facility] 01/08/2025 15:37:04 COVID-19, mRNA, LNP-S, bivalent, PF, 50 mcg/0.5 mL or 25mcg/0.25 mL dose 3 completed Not Available [facility] 01/08/2025 15:37:04 Tdap 3 completed Not Available [facility] 01/08/2025 15:37:04 Influenza, split virus, quadrivalent, PF 3 completed Not Available [facility] 01/08/2025 15:37:04 COVID-19, mRNA, LNP-S, PF, 50 mcg/0.5 mL 3 completed Not Available [facility] 01/08/2025 15:37:04 Influenza, split virus, trivalent, PF 4 completed Not Available [facility] 01/08/2025 15:37:04 Past Encounters Encounter ID Performer Location Encounter Start Date Encounter Closed Date Diagnosis/Indication Diagnosis SNOMED-CT Code Diagnosis ICD10 Code Diagnosis IMO Codes Diagnosis Note [id number] DIOR QUINTEROS APRN [facility] ([facility]) [address] [place] [phone] 01/08/2025 15:35:17 01/10/2025 13:36:56 Pain of left wrist 5105249567 87963 M25.532 476086 Health Concerns Section Related Observation LastModified by Organization Detai ls LastModified Time None Recorded Concern Status LastModified by Organization Details LastModified Time None Recorded Advance Directives Directive None Recorded Payers Insurance Date Sequence Insurance Name Policy Number Policy George Covered Member ID George Member ID Guarantor Name 01/08/2025 1 [facility] (MEDICARE REPLACEMENT/A DVANTAGE - PPO) Shelbi Jerez [id number] Shelbi Jerez 01/08/2025 2 [place] Shelbi Jerez [id number] Shelbi Jerez 01/10/2025 [place] [facility] hSelbi Jerez [id number] Shelbi Jerez Notes Date Note Type Note Provider Name and Address Organization Details Recorded Time 01/08/2025 text/html walk in ptPt fell 9 days ago and hurt left wrist. The last few days the pain has gotten worse. DIOR QUINTEROS, SEWING MACHINES SALESPERSON [address] [place], [address], [facility], Dat 01/08/2025 16:20:51 OBGyn Episode No OBEpisode recorded.
--- OUTSIDE RECORDS SUMMARY | 2025-06-13 06:46 | XMS_ITS | Encounter Summary ---
Author Organization [facility] Address [address] [place] [address] Care Team Providers Care Athletic Equipment Manager Name Role Phone Unavailable Primary Care Provider Unavailabl e Encounter Details Date Type Department Care Team (Latest Contact Info) Description 11/23/1999 Outpatient Historical HIS [facility] Eduard Alston MD [address] [place] [phone] Other, multiple, and unspecified sites, insect bite, nonvenomous, without mention of infection(919.4) (Primary Dx) Social History Tobacco Use Types Packs/Day Years Used Date Smoking Tobacco: Never Assessed Comments Unknown Sex and Gender Information Value Date Recorded Sex Assigned at Not on file Legal Sex Female 4:07 AM LICENSED NURSE PRACTITIONER Gender Identity Not on file Sexual Orientation Not on file documented as of this encounter Plan of Treatment Not on file documented as of this encounter Visit Diagnoses Diagnosis Other, multiple, and unspecified sites, insect bite, nonvenomous, without mention of infection(919.4)- Primary Other, multiple, and unspecified sites, insect bite, nonvenomous, without mention of infection documented in this encounter
--- OUTSIDE RECORDS SUMMARY | 2025-06-13 06:46 | XMS_ITS | Encounter Summary ---
Author Organization [facility] Address [address] [place] [address] Care Team Providers Care Podiatric Foot And Ankle Specialist Name Role Phone Unavailable Primary Care Provider Unavailabl e Encounter Details Date Type Department Care Team (Late st Contact Info) Description 09/04/1998 Outpatient Historical HIS [facility] Social History Tobacco Use Types Packs/Day Years Used Date Smoking Tobacco: Never Assessed Comments Unknown Sex and Gender Information Value Date Recorded Sex Assigned at Not on file Legal Sex Female 4:07 AM DELIVERY ENGINEER Gender Identity Not on file Sexual Orientation Not on file documented as of this encounter Plan of Treatment Not on file documented as of this encounter Visit Diagnoses Not on filedocumented in this encounter
--- OUTSIDE RECORDS SUMMARY | 2025-06-13 06:46 | XMS_ITS | Encounter Summary ---
Author Organization [facility] Address [address] [place] [address] Care Team Providers Care Book Jacket Cover Machine Operator Name Role Phone Unavailable Primary Care Provider Unavailabl e Encounter Details Date Type Department Care Team (Latest Contact Info) Description 11/02/1998 Outpatient Historical HIS [facility] Eduard Alston MD [address] [place] [phone] Palpitations (Primary Dx); Type II or unspecified type diabetes mellitus without mention of complication, not stated as uncontrolled; Morbid obesity (CMS/HCC) Social History Tobacco Use Types Packs/Day Years Used Date Smoking Tobacco: Never Assessed Comments Unknown Sex and Gender Information Value Date Recorded Sex Assigned at Not on file Legal Sex Female 4:07 AM STEREOTYPE CASTER Gender Identity Not on file Sexual Orientation Not on file documented as of this encounter Plan of Treatment Not on file documented as of this encounter Visit Diagnoses Diagnosis Palpitations- Primary Type II or unspecified type diabetes mellitus without mention of complication, not stated as uncontrolled Morbid obesity (CMS/HCC) Morbid obesity documented in this encounter
--- OUTSIDE RECORDS SUMMARY | 2025-06-13 06:46 | XMS_ITS | Encounter Summary ---
Author Organization [facility] Address [address] [facility] [place] [facility] Attn: [place] [address] Care Team Providers Care Sintering Press Operator Name Role Phone Unavailable Primary Care Provider Unavailabl e Encounter Details Date Type Department Care Team (Late st Contact Info) Description 07/21/2001 Outpatient Historical Eduard Alston MD [address] [place] [phone] Social History Tobacco Use Types Packs/Day Years Used Date Smoking Tobacco: Never Assessed Comments Unknown Sex and Gender Information Value Date Recorded Sex Assigned at Not on file Legal Sex Female 4:07 AM CUSTOMER ADVISOR Gender Identity Not on file Sexual Orientation Not on file documented as of this encounter Plan of Treatment Not on file documented as of this encounter Visit Diagnoses Not on filedocumented in this encounter
--- OUTSIDE RECORDS SUMMARY | 2025-06-13 06:46 | XMS_ITS | Encounter Summary ---
Author Organization [employer] [facility] Address [address] [place] [address] Care Team Providers Care Home Office Representative Name Role Phone Unavailable Primary Care Provider Unavailabl e Encounter Details Date Type Department Care Team (Latest Contact Info) Description 02/13/1999 Outpatient Historical HIS [facility] Eduard Alston MD [address] [place] [address] Allergic rhinitis, cause unspecified (Primary Dx); Palpitations; Type I (juvenile type) diabetes mellitus without mention of complication, not stated as uncontrolled Social History Tobacco Use Types Packs/Day Years Used Date Smoking Tobacco: Never Assessed Comments Unknown Sex and Gender Information Value Date Recorded Sex Assigned at Not on file Legal Sex Female 4:07 AM BOILER WELDER Gender Identity Not on file Sexual Orientation Not on file documented as of this encounter Plan of Treatment Not on file documented as of this encounter Visit Diagnoses Diagnosis Allergic rhinitis, cause unspecified- Primary Palpitations Type I (juvenile type) diabetes mellitus without mention of complication, not stated as uncontrolled documented in this encounter
--- OUTSIDE RECORDS SUMMARY | 2025-06-13 06:46 | XMS_ITS | Encounter Summary ---
Author Organization [facility] Address [address] [place] [address] Care Team Providers Care Foster Parent Name Role Phone Unavailable Primary Care Provider Unavailabl e Encounter Details Date Type Department Care Team (Latest Contact Info) Description 01/28/2002 Outpatient Historical HIS [facility] Eduard Alston MD [address] [place] [phone] Lateral epicondylitis (Primary Dx); DEPRESSIVE DISORDER NEC Social History Tobacco Use Types Packs/Day Years Used Date Smoking Tobacco: Never Assessed Comments Unknown Sex and Gender Information Value Date Recorded Sex Assigned at Not on file Legal Sex Female 4:07 AM ABSENCE MANAGEMENT CONSULTANT Gender Identity Not on file Sexual Orientation Not on file documented as of this encounter Plan of Treatment Not on file documented as of this encounter Visit Diagnoses Diagnosis Lateral epicondylitis- Primary Lateral epicondylitis of elbow Depressive disorder, not elsewhere classified documented in this encounter
--- OUTSIDE RECORDS SUMMARY | 2025-06-13 06:46 | XMS_ITS | Encounter Summary ---
Author Organization [employer] [facility] Address [address] [place] [address] Care Team Providers Care Recovery Analyst Name Role Phone Unavailable Primary Care Provider Unavailabl e Encounter Details Date Type Department Care Team (Latest Contact Info) Description 09/10/1999 Outpatient Historical HIS [facility] Eduard Alston MD [address] [place] [phone] Sprain of ankle, unspecified site (Primary Dx); Type II or unspecified type diabetes mellitus without mention of complication, not stated as uncontrolled Social History Tobacco Use Types Packs/Day Years Used Date Smoking Tobacco: Never Assessed Comments Unknown Sex and Gender Information Value Date Recorded Sex Assigned at Not on file Legal Sex Female 4:07 AM TREE INSPECTOR Gender Identity Not on file Sexual Orientation Not on file documented as of this encounter Plan of Treatment Not on file documented as of this encounter Visit Diagnoses Diagnosis Sprain of ankle, unspecified site- Primary Type II or unspecified type diabetes mellitus without mention of complication, not stated as uncontrolled documented in this encounter
--- OUTSIDE RECORDS SUMMARY | 2025-06-13 06:46 | XMS_ITS | Encounter Summary ---
Author Organization [facility] Address [address] [place] [address] Care Team Providers Care Freelance Programmer/App Developer Name Role Phone Unavailable Primary Care Provider Unavailabl e Encounter Details Date Type Department Care Team (Late st Contact Info) Description 09/21/1998 Outpatient Historical HIS [facility] Social History Tobacco Use Types Packs/Day Years Used Date Smoking Tobacco: Never Assessed Comments Unknown Sex and Gender Information Value Date Recorded Sex Assigned at Not on file Legal Sex Female 4:07 AM ACCOUNT MANAGER FOREST SERVICE Gender Identity Not on file Sexual Orientation Not on file documented as of this encounter Plan of Treatment Not on file documented as of this encounter Visit Diagnoses Not on filedocumented in this encounter
--- OUTSIDE RECORDS SUMMARY | 2025-06-13 06:46 | XMS_ITS | Encounter Summary ---
Author Organization [facility] Address [address] [place] [address] Care Team Providers Care Sheriff Detective Name Role Phone Unavailable Primary Care Provider Unavailabl e Encounter Details Date Type Department Care Team (Latest Contact Info) Description 07/21/2001 Outpatient Historical HIS [facility] Eduard Alston MD [address] [place] [phone] FEMALE GENITAL SYMPTOMS NOS (Primary Dx) Social History Tobacco Use Types Packs/Day Years Used Date Smoking Tobacco: Never Assessed Comments Unknown Sex and Gender Information Value Date Recorded Sex Assigned at Not on file Legal Sex Female 4:07 AM DIGESTION OPERATOR Gender Identity Not on file Sexual Orientation Not on file documented as of this encounter Plan of Treatment Not on file documented as of this encounter Visit Diagnoses Diagnosis Unspecified symptom associated with female genital organs- Primary documented in this encounter
--- OUTSIDE RECORDS SUMMARY | 2025-06-13 06:46 | XMS_ITS | Encounter Summary ---
Author Organization [facility] Address [address] [place] [address] Care Team Providers Care Textile Engineer Name Role Phone Unavailable Primary Care Provider Unavailabl e Encounter Details Date Type Department Care Team (Latest Contact Info) Description 03/27/1999 Outpatient Historical HIS [facility] Eduard Alston MD [address] [place] [phone] Obesity, unspecified (Primary Dx); Other voice and resonance disorders; Depressive disorder, not elsewhere classified Social History Tobacco Use Types Packs/Day Years Used Date Smoking Tobacco: Never Assessed Comments Unknown Sex and Gender Information Value Date Recorded Sex Assigned at Not on file Legal Sex Female 4:07 AM LUMBER PILER OPERATOR Gender Identity Not on file Sexual Orientation Not on file documented as of this encounter Plan of Treatment Not on file documented as of this encounter Visit Diagnoses Diagnosis Obesity, unspecified- Primary Other voice and resonance disorders Depressive disorder, not elsewhere classified documented in this encounter
--- OUTSIDE RECORDS SUMMARY | 2025-06-13 06:46 | XMS_ITS | Encounter Summary ---
Author Organization [facility] Address [address] [place] [address] Care Team Providers Care Sql Dba Name Role Phone Unavailable Primary Care Provider Unavailabl e Encounter Details Date Type Department Care Team (Latest Contact Info) Description 12/29/2001 Outpatient Historical HIS [facility] Eduard Alston MD [address] [place] [phone] DEPRESSIVE DISORDER NEC (Primary Dx) Social History Tobacco Use Types Packs/Day Years Used Date Smoking Tobacco: Never Assessed Comments Unknown Sex and Gender Information Value Date Recorded Sex Assigned at Not on file Legal Sex Female 4:07 AM PHYSICAL THERAPY COORDINATOR Gender Identity Not on file Sexual Orientation Not on file documented as of this encounter Plan of Treatment Not on file documented as of this encounter Visit Diagnoses Diagnosis Depressive disorder, not elsewhere classified- Primary documented in this encounter
[2025-06-13 06:57] VITALS: BP 179/90; PULSE 69; RESP 22; TEMP 36.6; O2SAT 100
[2025-06-13 07:08] LABS: Glucose Urine UA 3+ (Normal); Nitrate Urine Negative (Negative); Specific Gravity, Urine 1.017 (1.005-1.030)
--- NOTE | 2025-06-13 07:22 | W.ED.ABDPA2 ---
HPI - Abdominal Pain General: Chief Complaint: Abdominal Pain Stated Complaint: n/v, abd pain in L side back, MACHADO Time Seen by Provider: 06/13/25 07:01 History of Present Illness: 64-year-old female with a history of kidney stones, primary hyperparathyroidism, diabetes with diabetic peripheral neuropathy, obstructive sleep apnea, who presents emergency room with left flank pain and nausea. This started a couple hours before she arrived to the emergency room. Said she has been having intermittent blood in her urine for about a week now. He does have a history of kidney stones. No fever. No chest pain. No shortness of breath. No altered mental status. Related Data Home Medications ?Medication ?Instructions ?Recorded ?Confirmed albuterol sulfate 90 mcg/actuation inhalation 08/08/22 06/08/25 aerosol inhaler insulin glargine 100 unit/mL (3 unit SUBCUT 08/08/22 06/08/25 mL) subcutaneous pen (Lantus Solostar U-100 Insulin) topiramate 50 mg tablet mg PO 08/08/22 06/08/25 dapagliflozin propanediol 5 mg 5 mg PO DAILY 05/31/23 06/08/25 tablet (Farxiga) fluoxetine 20 mg capsule 20 mg PO DAILY 05/31/23 06/08/25 tirzepatide 10 mg/0.5 mL mg SUBCUT 04/14/24 06/08/25 subcutaneous pen injector (Mounjaro) zonisamide 100 mg capsule mg PO 04/14/24 06/08/25 Previous Rx's ?Medication ?Instructions ?Recorded Custom accommodated insoles #1 ea 07/21/24 clobetasol 0.05 % topical cream 1 g topical DAILY 2 weeks #60 grams 06/05/25 prednisone 20 mg tablet 20 mg PO DAILY 16 days #20 tabs 06/05/25 cefdinir 300 mg capsule 300 mg PO BID 10 days #20 caps 06/13/25 hydrocodone 5 mg-acetaminophen 325 1 tab PO Q6H PRN pain #20 tabs 06/13/25 mg tablet ondansetron 8 mg disintegrating 8 mg PO Q6H #14 tabs 06/13/25 tablet polyethylene glycol 3350 17 17 g PO DAILY #510 grams 06/13/25 gram/dose oral powder (Miralax) tamsulosin 0.4 mg capsule (Flomax) 0.4 mg PO DAILY #30 caps 06/13/25 Allergies Allergy/AdvReac Type Severity Reaction Status Date / Time No Known Allergies Allergy Verified 06/08/25 13:40 Review of Systems Narrative: Constitutional symptoms: Negative except as documented in HPI. Skin symptoms: Negative except as documented in HPI. Eye symptoms: Negative except as documented in HPI. ENMT symptoms: Negative except as documented in HPI. Respiratory symptoms: Negative except as documented in HPI. Cardiovascular symptoms: Negative except as documented in HPI. Gastrointestinal symptoms: Negative except as documented in HPI. Genitourinary symptoms: Negative except as documented in HPI. Musculoskeletal symptoms: Negative except as documented in HPI. Neurologic symptoms: Negative except as documented in HPI. Psychiatric symptoms: Negative except as documented in HPI. Endocrine symptoms: Negative except as documented in HPI. PFSH ED PFSH: Social History Smoking and tobacco/nicotine status: never used tobacco/nicotine Physical Exam Narrative: EXAM NARRATIVE: General: Alert, no acute distress. Skin: Warm, dry. Head: Normocephalic, atraumatic. Neck: Supple, trachea midline. Eye: Extraocular movements are intact. Ears, nose, mouth and throat: Tacky oral mucosa Cardiovascular: Regular, Normal peripheral perfusion. Respiratory: Lungs are clear to auscultation, respirations are non-labored, breath sounds are equal, Symmetrical chest wall expansion. Gastrointestinal: Soft, left flank pain, Non distended Musculoskeletal: Normal ROM, no deformity. Neurological: Alert and oriented, No focal neurological deficit observed. Psychiatric: Cooperative, appropriate mood & affect. Course Vital Signs: Vital signs: Vital Signs Temperature 97.9 F 06/13/25 06:57 Pulse Rate 61 06/13/25 10:05 Respiratory Rate 22 H 06/13/25 06:57 Blood Pressure 162/82 06/13/25 10:05 Pulse Oximetry 98 06/13/25 10:05 Oxygen Delivery Me thod Room Air 06/13/25 06:57 MDM - Abdominal Pain Medical Decision Making Medical decision making: Differential diagnosis including but not limited to and based on the above HPI, review of systems and physical exam: In this patient with flank pain would have concern for: Ureterolithiasis. Urinary tract infection. Appendicitis. Cholecystitis. Musculoskeletal / back pain. Pyelonephritis. Orders placed to evaluate differential diagnosis based on the above differential, HPI and physical exam Lab Review: Laboratory results were reviewed and interpreted by myself the emergency room physician. No leukocytosis. No anemia. No renal failure. Glucose is mildly elevated at 179. Urinalysis is nitrate negative with greater than 100 red cells and 10-[address] of the abdomen pelvis shows a proximal left 6 mm kidney stone. Multiple stones in the kidneys bilaterally. This was reviewed and interpreted by myself the emergency room physician. I also reviewed the radiology report. I reviewed the patient's medical record. 64-year-old female with a history of kidney stones, primary hyperparathyroidism, diabetes with diabetic peripheral neuropathy, obstructive sleep apnea, Reexamination: Patient did have some improvement in pain with Toradol. Also received Zofran. No increased work of breathing. No altered mental status. We discussed findings and she will follow-up with Dr. Skelton in [place] Consultation: I spoke with Dr. Skelton who is urologist in [place]. Provided him with the contact information for the patient and he will call them and schedule an appointment in the next couple of days. I discussed this with the patient as well. Assessment and plan: Kidney stone ? Normal saline bolus, Toradol, Zofran - Discharged home - Discussed plan with patient. Answered any questions. - Evaluation and treatment of this problem were appropriate in the emergency setting. Lab Data 06/13/25 07:13 06/13/25 07:13 Labs/Radiology: Radiology Impressions Abdomen/Pelvis CT 06/13/25 07:52 IMPRESSION: 1. Bilateral renal calculi. 2. Proximal left ureteral calculus with mild left hydronephrosis. Left perinephric stranding. Laboratory Results WBC 8.91 10^3/uL (3.29-11.43) 06/13/25 07:13 RBC 5.46 10^6/uL (3.85-5.65) 06/13/25 07:13 Hgb 15.60 g/dL (11.27-16.99) 06/13/25 07:13 Hct 48.0 % (36-47) H 06/13/25 07:13 MCV 87.9 fl (85-98) 06/13/25 07:13 MCH 28.6 pg (27-33) 06/13/25 07:13 MCHC 32.5 g/dL (30-55) 06/13/25 07:13 RDW 13.3 % (12.1-15.1) 06/13/25 07:13 Plt Count 274 10^3/cmm (157-399) 06/13/25 07:13 MPV 9.5 fL (7.4-10.4) 06/13/25 07:13 Neut % (Auto) 66.0 % 06/13/25 07:13 Lymph % (Auto) 22.2 % 06/13/25 07:13 [place] % (Auto) 7.6 % 06/13/25 07:13 Eos % (Auto) 3.0 % 06/13/25 07:13 Baso % (Auto) 0.9 % 06/13/25 07:13 Neut # (Auto) 5.87 10^3/uL (1.8-7.7) 06/13/25 07:13 Lymph # (Auto) 2.0 10^3/uL (0.8-4.8) 06/13/25 07:13 [place] # (Auto) 0.7 10^3/uL (0.2-0.9) 06/13/25 07:13 Eos # (Auto) 0.3 10^3/uL (0.0-0.8) 06/13/25 07:13 Baso # (Auto) 0.1 10^3/uL (0.0-0.1) 06/13/25 07:13 Nucleated RBC % (auto) 0 % 06/13/25 07:13 Nucleated RBCs # 0.0 /100WBC 06/13/25 07:13 Sodium 137 mmol/L (136-145) 06/13/25 07:13 Potassium 3.9 mmol/L (3.5-5.1) 06/13/25 07:13 Chloride 102 mmol/L (98-107) 06/13/25 07:13 Carbon Dioxide 19 mmol/L (22-29) L 06/13/25 07:13 Anion Gap 19.9 (5-19) H 06/13/25 07:13 BUN 20 mg/dL (8-23) 06/13/25 07:13 Creatinine 0.7 mg/dL (0.5-0.9) 06/13/25 07:13 GFR Calculation 84.8 mL/min (90-130) L 06/13/25 07:13 Glucose 179 mg/dL (65-115) H 06/13/25 07:13 Calculated Osmolality 291 mOsm/kg (285-295) 06/13/25 07:13 Lactic Acid 1.8 mmol/L (0.5-2.2) 06/13/25 07:13 Calcium 10.9 mg/dL (8.5-10.5) H 06/13/25 07:13 Total Bilirubin 0.6 mg/dL (0.15-1.2) 06/13/25 07:13 AST 18 U/L (0-32) 06/13/25 07:13 ALT 25 U/L (0-33) 06/13/25 07:13 Alkaline Phosphatase 103 U/L (35-105) 06/13/25 07:13 C-Reactive Protein 3.0 mg/L (0.0-4.9) 06/13/25 07:13 Total Protein 7.0 g/dL (6.6-8.7) 06/13/25 07:13 Albumin 4.3 g/dL (3.5-5.2) 06/13/25 07:13 Globulin 2.7 g/dL (1.3-4.6) 06/13/25 07:13 Lipase 115 U/L (13-60) H 06/13/25 07:13 Urine Color Red (Yellow) A 06/13/25 06:58 Urine Appearance Cloudy (CLEAR) A 06/13/25 06:58 Urine pH 7.0 (5-7) 06/13/25 06:58 Ur Specific [place] 1.017 (1.005-1.030) 06/13/25 06:58 Urine Protein Trace (Negative) A 06/13/25 06:58 Urine Glucose (UA) 3+ (Normal) H 06/13/25 06:58 Urine Ketones Trace (Negative) 06/13/25 06:58 Urine Blood 3+ (Negative) A 06/13/25 06:58 Urine Nitrate Negative (Negative) 06/13/25 06:58 Urine Bilirubin Negative (Negative) 06/13/25 06:58 Urine Urobilinogen 1.0 mg/dL (Negative) 06/13/25 06:58 Ur Leukocyte Esterase Trace (Negative) A 06/13/25 06:58 Urine RBC >100 /hpf (0-2) H 06/13/25 06:58 Urine WBC 10-15 /hpf (0-5) H 06/13/25 06:58 Ur Squamous Epith Cells 0-4 /hpf (0-5) H 06/13/25 06:58 Amorphous Sediment Not Reportable 06/13/25 06:58 Urine Bacteria Trace /hpf (NONE) 06/13/25 06:58 Hyaline Casts 0-4 /lpf H 06/13/25 06:58 All radiology interpretation(s) finalized by discharge Discharge Plan Discharge Patient Disposition: Home Clinical Impression: Ureterolithiasis, Dehydration Condition: Stable Prescriptions: New hydrocodone-acetaminophen 5-325 mg tablet 1 tab PO Q6H PRN (Reason: pain) Qty: 20 0RF ondansetron 8 mg tablet,disintegrating 8 mg PO Q6H Qty: 14 0RF Rx Instructions: Take 1/2-1 tab every 6 hours as needed for nausea and vomiting tamsulosin [Flomax] 0.4 mg capsule 0.4 mg PO DAILY Qty: 30 0RF polyethylene glycol 3350 [Miralax] 17 gram/dose powder 17 g PO DAILY Qty: 510 0RF Rx Instructions: Take 1 scoop daily while taking pain medications. cefdinir 300 mg capsule 300 mg PO BID 10 Days Qty: 20 0RF No Action Farxiga 5 mg tablet 5 mg PO DAILY fluoxetine 20 mg capsule 20 mg PO DAILY Mounjaro 10 mg/0.5 mL pen injector SUBCUT zonisamide 100 mg capsule PO topiramate 50 mg tablet PO insulin glargine [Lantus Solostar U-100 Insulin] 100 unit/mL (3 mL) insulin pen SUBCUT albuterol sulfate 90 mcg/actuation HFA aerosol inhaler inhalation prednisone 20 mg tablet 20 mg PO DAILY 16 Days Qty: 20 0RF Rx Instructions: 40mg (2tabs)poqd for 4d, 30mg(1.5tabs)poqd for4d, 20mg(1 tab)poqd for 4d, 10mg(0.5tab)poqd for 4d clobetasol 0.05 % cream 1 g topical DAILY 14 Days Qty: 60 0RF (DME) Diabetic Shoes and Custom accommodated insoles See Rx Instructions .Route .MEDSUPPLY Qty: 1 0RF Rx Instructions: As directed Cris [facility] Discharge Orders: Discharge ED (Routine); Ordered 06/13/25 Ordered By: Rani Saba Referrals: Jorge Skelton [Referring, Urology] - 1-3 days Referral Note: If you do not hear from Dr. Skelton's office call his clinic or urologist of your choosing for follow-up appointment. Annita Ruff, MIXING ROLL OPERATOR [Primary Care Provider, Nurse Practitioner] Discharge Diet: Usual diet Discharge Activity: Increase activity as tolerated Patient Instructions: Kidney Stones (ED), Opioid Safety, Pain Management, Patient Portal & Tomime Instructions Activity Restrictions/Additional Instructions: Call for appointment with urology. If fever (temp >100.4) develops return to the emergency room immediately, as this is an emergency. Take nausea medication prior to taking pain medications. Thank you for choosing [facility] for your healthcare needs today. You have been screened and evaluated and felt safe for discharge. Health conditions do change or evolve sometimes and as such it is important that you follow up with your Primary Doctor to be re checked, 3-5 days is a general good time frame for follow up. You are always welcome to return to the ED for re assessment if your symptoms are worsening or you have new concerns Print Language: Upper Sorbian Coding Level of Care Code ED Employee Relations Manager for [employer]
[2025-06-13 07:27] LABS: Hematocrit 48.0 % (36-47); Hemoglobin 15.60 g/dL (11.27-16.99); Mean Corpuscular HGB Conc 32.5 g/dL (30-55); Mean Corpuscular Hemoglobin 28.6 pg (27-33); Mean Corpuscular Volume 87.9 fl (85-98); Nucleated Red Blood Cells % 0 %; Platelet Count 274 10^3/cmm (157-399); Red Blood Count 5.46 10^6/uL (3.85-5.65); White Blood Count 8.91 10^3/uL (3.29-11.43)
[2025-06-13 07:32] LABS: UA Manual Slide Review YES; UA Slide Review UA Slide Review Perf
[2025-06-13 07:44] LABS: Alanine Aminotransferase 25 U/L (0-33); Albumin Level 4.3 g/dL (3.5-5.2); Alkaline Phosphatase 103 U/L (35-105); Anion Gap 19.9 (5-19); Aspartate Amino Transferase 18 U/L (0-32); Blood Urea Nitrogen 20 mg/dL (8-23); Calcium 10.9 mg/dL (8.5-10.5); Carbon Dioxide 19 mmol/L (22-29); Chloride 102 mmol/L (98-107); Creatinine Clr Calc Pharmacy 102.4667; Globulin 2.7 g/dL (1.3-4.6); Glucose 179 mg/dL (65-115); Osmolality Calculated 291 mOsm/kg (285-295); Potassium 3.9 mmol/L (3.5-5.1); Sodium 137 mmol/L (136-145); Total Protein 7.0 g/dL (6.6-8.7)
[2025-06-13 07:45] LABS: Lactic Sepsis W/Reflex 1.8 mmol/L (0.5-2.2)
--- NOTE | 2025-06-13 07:52 | CTR_ITS ---
PROCEDURE INFORMATION: Exam: CT Abdomen And Pelvis Without Contrast Exam date and time: 06/13/2025 08:08 AM Age: 64 years old Clinical indication: Abdominal pain; Generalized; Prior surgery; Surgery date: 6+ months; Surgery type: 2 csection TECHNIQUE: Imaging protocol: Computed tomography of the abdomen and pelvis without contrast. Radiation optimization: All CT scans at this facility use at least one of these dose optimization techniques: automated exposure control; mA and/or kV adjustment per patient size (includes targeted exams where dose is matched to clinical indication); or iterative reconstruction. COMPARISON: CT chest abdpel w/*[id number] 07/30/2021 11:34 AM RADIATION DOSE METRICS: Total DLP (mGy-cm): 943.63 FINDINGS: Liver: Normal. No mass. Gallbladder and biliary ducts: Normal. No calcified stones. No ductal dilation. Pancreas: Normal. No ductal dilation. Spleen: Normal. No splenomegaly. Adrenal glands: Normal. No mass. Kidneys and ureters: Bilateral renal calculi. Prominent right extrarenal pelvis. Mild left hydronephrosis. Proximal left ureteral calculus measuring 6 mm in length (series 4, image 107; series 6, image 85). Stomach and bowel: Unremarkable. No obstruction. No mucosal thickening. Appendix: No evidence of appendicitis. Intraperitoneal space: Unremarkable. No free air. No significant fluid collection. Vasculature: Atherosclerotic vascular disease. Lymph nodes: Unremarkable. No enlarged lymph nodes. Urinary bladder: No bladder calculi. Reproductive: Right ovarian calcifications are again demonstrated and seen as far back as 02/15/2019. Bones/joints: Osteopenia. Mild degenerative changes of the spine. Soft tissues: Unremarkable. CT/CT kidney stone [id number] IMPRESSION: 1. Bilateral renal calculi. 2. Proximal left ureteral calculus with mild left hydronephrosis. Left perinephric stranding.
[2025-06-13] MEDS: ondansetron 2 mg/ML SDV 2 mL 4 MG IVP (07:57)
[2025-06-13 08:10] LABS: Lipase 115 U/L (13-60)
[2025-06-13] MEDS: cefTRIAXone 1,000 mg SDV 1000 MG IVP (08:49)
[2025-06-13 09:56] VITALS: BP 162/82; PULSE 61; O2SAT 98
[2025-06-13 10:05] VITALS: BP 162/82; PULSE 61; O2SAT 98
== END 2025-06-13 10:06 | disposition home or self-care (01) ==
PROVIDERS: Emergency Provider Emergency Medicine; PCP Nurse Practitioner Family
DX: N20.1 Calculus of ureter (principal); E86.0 Dehydration; Z79.4 Long term (current) use of insulin; E11.42 Type 2 diabetes mellitus with diabetic polyneuropathy; Z87.442 Personal history of urinary calculi
CPT/HCPCS: 36415; 74176; 80053; 81001; 83605; 83690; 85025; 86140; 87040; 87086; 96374; 96375; 99285; J0696; J1885; J2405; J7030